=== PATIENT | female | born 1950 | race Caucasian/White ===

== ENCOUNTER 2016-12-05 15:43 | Emergency (ER) | payer MEDICARE, MEDICAID ==
--- NOTE | 2016-12-05 18:39 | RAD ---
Exam: Two-view chest COMPARISON: None INDICATION: Cough, body pains for 2 months. Findings: PA and lateral views of the chest were obtained. Cardiac silhouette is within normal limits. Lungs are well-inflated. There is no focal airspace disease or pleural effusion. Bones of the chest wall within normal limits. IMPRESSION: Negative two-view chest.
[2016-12-05] MEDS ORDERED: LACTATED RINGERS 1,000 ML ONE (19:37)
[2016-12-05 20:03] LABS: ABSOLUTE NEUTROPHIL COUNT 4.3 K/mm3 (1.8-7.7); BASO # 0.1 K/mm3 (0.0-0.2); BASO % 0.7 % (0.2-1.0); EOS # 0.2 (0.0-0.5); EOS % 3.1 % (0.9-2.9); HEMOGLOBIN 10.9 gm/l (12.0-16.0); IMM NEUT # 0.1 K/mm3 (0-0.2); IMM NEUT% 0.7 % (0-1); LYMPH # 2.1 (1.0-4.8); LYMPH % 27.5 % (15-45); MEAN CELL VOLUME 90.7 fl (81.0-99.0); MEAN CORPUSCULAR HEMOGLOBIN 29.9 pg (27.0-31.0); MEAN PLATELET VOLUME 9.1 fl (7.4-10.4); MONO # 0.8 (0.0-0.8); PLATELET COUNT 368 K/mm3 (130-400); RED CELL DISTRIBUTION WIDTH 12.2 % (11.5-14.5)
[2016-12-05 20:17] LABS: CALCIUM 9.9 mg/dL (8.6-10.3)
== END 2016-12-05 20:10 | disposition home or self-care (01) ==
LOC: ED 15:43
DX: R05 Cough (principal); F17.210 Nicotine dependence, cigarettes, uncomplicated